=== PATIENT | female | born 1970 | race Caucasian/White ===

== ENCOUNTER 2016-09-18 14:22 | Emergency (ER) | payer OTHER ==
[~2016-09-18] VITALS: Ht 165.1 cm; Wt 118.2 kg
[~2016-09-18 14:22] MED LIST: ACET-171 PO; ASPI-973 PO; BENZ142C6 TP; BUSP10TA2 PO; CARV6.252 PO; CLIN30GE2 TP; DOCU50CA7 PO; DULO30CA PO; FEXO180T85 PO; FLUT16SP NS; HYDR-4003 PO; IBUP-1827 PO; KETACONAZOLE SHAMPOO TP; LISI-571 PO; OXYC1TAB24 PO; PRAZ1CAP2 PO; SPIR25TA3 PO; SULF1TAB34 PO; SUMA50TA2 PO; TIZA2CAP PO; TRAM50TA2 PO; VALA100026 PO
[2016-09-18 14:23] VITALS: BP 98/55; PULSE 93; RESP 15; O2SAT 98
[2016-09-18] MEDS ORDERED: 0.9% Sodium Chloride 1,000 ML IV ONE (14:40)
--- NOTE | 2016-09-18 14:40 | ED.REPORT ---
HPI-General Illness Date of Service Sep 18, 2016 ED Provider: The patient is a 46 year old female with history of coronary artery disease, congestive heart failure, hypertension, nonsustained V tach s/p AICD insertion, atrial fibrillation s/p cardiac ablation, valvular heart disease, and anxiety, who was brought to the emergency department by EMS for dizziness and lightheadedness that began 2 days ago. Her symptoms have worsened today. Her symptoms are exacerbated with standing. She has also noticed some dull chest pain and nausea. Her lisinopril dose was recently increased from 15 mg to 20 mg daily. Her states 2 weeks ago the patient had an episode of choking. She has not wanted to eat since this. Her urine has had a foul smell over the last few days. She denies abdominal pain, diarrhea, vomiting, dysuria, hematuria , cough or shortness of breath. Nursing Notes Stated Complaint: LIGHT HEADED Chief Complaint: General Complaint Nursing Notes Reviewed: Yes Allergies: Coded Allergies: Tetanus Vaccines and Toxoid (Verified Allergy, Severe, Shortness of Breath , 10/26/15) ibuprofen (Verified Allergy, Severe, Shortness of Breath, 10/26/15) TAPE (Verified Allergy, Unknown, Rash (plastic tape & tegaderm), 10/26/15) aripiprazole (Verified Allergy, Unknown, 10/26/15) bupropion (Unverified Allergy, Unknown, UNKNOWN, 08/13/15) latex (Verified Allergy, Unknown, UNKNOWN, 08/13/15) topiramate (Verified Allergy, Unknown, 08/13/15) citalopram hydrobromide (Verified Adverse Reaction, Severe, Agitation, ) Suicidal tendancies venlafaxine HCl (Verified Adverse Reaction, Severe, Agitation, 04/07/15) extreme mood swings Uncoded Allergies: ARACELI DELIGHT ORANGE DRINK (Allergy, Unknown, UNKNOWN, 04/07/15) Scheduled ([Ketaconazole Shampoo]) 1 APPLIC TP WEEKLY 2% Aspirin (Aspirin) 81 Mg Tablet 81 MG PO DAILY Buspirone (Buspirone) 10 Mg Tablet 15 MG PO BID Carvedilol (Carvedilol) 6.25 Mg Tablet 2 TAB PO BID Clindamycin Phosphate (Clindamycin Phosphate Gel) 30 Gm Gel..gram. 1 APPLIC TP DAILY Duloxetine (Cymbalta) 30 Mg Capsule.dr 30 MG PO BID TAKES 60MG IN AM; 30MG IN PM Fexofenadine (Maria Esther Allergy) 180 Mg Tablet 180 MG PO DAILY Fluticasone Propionate (Fluticasone Propionate Nasal) 16 Gm [place].susp 2 [place] NS DAILY Lisinopril (Lisinopril) 5 Mg Tablet 5 MG PO BID Prazosin (Prazosin) 1 Mg Capsule 3 MG PO HS Spironolactone (Spironolactone) 25 Mg Tablet 25 MG PO DAILY Sulfamethoxazole/Trimeth 400-80 mg (Bactrim 400-80 mg) 1 Each Tablet 1 TABLET PO BID Valacyclovir (Valacyclovir) 1,000 Mg Tablet 1,000 MG PO BID X 5 DAYS Scheduled PRN Acetaminophen (Acetaminophen) 500 Mg Tablet 500-1,000 MG PO PRN PRN PRN For Pain Benzoyl Peroxide (Benzoyl Peroxide) 142 Gm Cleanser 142 GM TP BID PRN PRN PRN Docusate Sodium (Docusate Sodium) 50 Mg Capsule 100 MG PO BID PRN PRN For Constipation Hydrocodone-Acetaminophen 5-325 mg (Hydrocodone-Acetaminophen 5-325 mg) 1 Each Tablet 1 TABLET PO Q4H PRN PRN For Pain Ibuprofen (Ibuprofen) 600 Mg Tablet 600 MG PO QID PRN PRN For Pain Sumatriptan Succinate (Sumatriptan Succinate) 50 Mg Tablet 50 MG PO PRN PRN PRN For Headache Take One at onset of headache, may repeat one time if after 2 hours if headache persists Tizanidine (Zanaflex) 2 Mg Capsule 2 MG PO TID PRN PRN For Pain Tramadol (Tramadol) 50 Mg Tablet 100 MG PO TID PRN PRN For Pain oxyCODONE-Acetaminophen 5-325 mg (oxyCODONE-Acetaminophen 5-325 mg) 1 Tab Tablet 1-2 TAB PO Q4H PRN PRN For Moderate Pain General Time Seen by MD: 14:39 Chief Complaint Dizziness Hx Obtained From: Patient, Spouse, EMS Arrived By: Ambulance Sudden in Onset?: Yes Onset Occurred: 1 - 4 hours ago Symptom Duration: Since onset Location: : Chest Quality: Pressure Radiation: : Does not radiate Severity: Current: No pain currently Severity: Maximum: Mild Recent Healthcare: No recent doctor visit, No recent hospitalization Similar Sx Previous: No Past Medical History Past Medical History Neuropathy Fibromyalgia Chronic back pain and deteriorating discs History of nonsustained V tach - AICD (06/2013) UTI Chest Pain (HX SD) Edema Heart Murmur (ECHO 04/2013 PULMONARY HTN) Irregular Heartbeat (HX OF VT,PT REPORTS PALPITATIONS) Atrial Fibrillation (AF, SVT) Pacemaker Valvular Heart Disease Osteoarthritis Anxiety Reports: Congestive heart failure, Coronary artery disease, Hypertension Reports: Gallbladder disease Past Surgical History Catheter in February of 2013 Cardiac ablation Reports: , Cholecystectomy, Hysterectomy Reports: Pacemaker insertion Family History Noncontributory Smoking History Former Smoker Social History Alcohol Use: Denies alcohol use Drug Use: Denies drug use Other Social History: Good social support, , Local resident Ambulatory Status Independent Review of Systems +foul smelling urine Full Review of Systems Constitutional: Denies: Chills, Fever Ears / Nose / Throat: Denies: Nasal congestion, Sore throat Respiratory: Denies: Non-productive cough, Shortness of breath Cardiovascular: Reports: Chest pain GI: Reports: Anorexia, Nausea, Denies: Abdominal pain, Constipation, Diarrhea, Hematemesis, Hematochezia, Vomiting Female: Denies: Dysuria, Hematuria, Urinary frequency, Urinary urgency, Urination decreased, Urination increased Neurologic: Reports: Dizziness, Lightheaded Complete sys rev & neg: except as marked. Physical Exam Vital Signs Vital Signs Date Time Temp Pulse Resp B/P Pulse Ox O2 Delivery O2 Flow Rate FiO2 09/18/16 17:21 36.5 74 16 128/68 98 Room Air 09/18/16 17:06 74 16 128/68 98 Room Air 09/18/16 15:47 83 22 110/72 95 Room Air 09/18/16 14:42 107 85/54 09/18/16 14:41 87 14 90/54 96 Room Air 09/18/16 14:41 97 101/51 09/18/16 14:23 36.5 93 15 98/55 98 Room Air Initial VS: Reviewed, Vital signs abnormal Head / Eyes: Atraumatic, Normocephalic, PERRL Neck: Supple, Non-tender, Full range of motion Cardiovascular: Regular rate & rhythm, Heart sounds normal, Intact distal pulses Abdomen / GI: Soft, Non-tender, No guarding, No rebound, No distention Lymphatic: No lymphadenopathy Extremities: Vascular intact, Neuro intact, No swelling, No tenderness Skin: Warm, Dry, No cyanosis Neurologic: Alert, Oriented, Nonfocal Psychiatric: Mood/affect normal, Behavior normal, Normal thought content General/Constitutional: Awake, Alert, Cooperative ENT: Airway patent Mouth: Positive: Mucous membranes dry Respiratory / Chest: Breath sounds NL, Breath sounds = bilat, No respiratory distress, No rales, No rhonchi, No wheezing Chest tenderness to palpation Abdomen: Soft, No guarding, No rebound, BS normoactive, No distention Tenderness/Guarding/Rebound: Positive: Tender epigastric Interpretation & Diagnostics Lab Results Interpretation Result Diagram: 09/18/16 1458 09/18/16 1458 Test 09/18/16 14:58 09/18/16 15:31 09/18/16 16:18 White Blood Count 20.0th/mm3 (3.8-10.1) Red Blood Count 5.66mil/mm3 (3.90-5.20) Hemoglobin 16.7g/dL (12.0-15.6) Hematocrit 50.3% (35.0-46.0) Mean Corpuscular Volume 88.9fL (81-100) Mean Corpuscular Hemoglobin 29.5pg (27.0-35.0) Mean Corpuscular Hemoglobin Concent 33.2% (32.0-37.0) Red Cell Distribution Width 14.5% (12.3-15.4) Platelet Count 254bil/L (150-400) Neutrophils (%) (Auto) 81.2% (40-74) Lymphocytes (%) (Auto) 10.6% (14-46) Monocytes (%) (Auto) 7.1% (4-12) Eosinophils (%) (Auto) 0.5% (0-5) Basophils (%) (Auto) 0.2% (0-3) Sodium Level 133mEq/L (134-144) Potassium Level 4.6mEq/L (3.5-5.2) Chloride Level 100mEq/L (97-108) Carbon Dioxide Level 16mmol/L (18-29) Blood Urea Nitrogen 13mg/dL (6-24) Creatinine 0.94mg/dL (0.57-1.00) Estimat Glomerular Filtration Rate 92mL/min (>59) Glucose Level 115mg/dL (60-99) Calcium Level 8.5mg/dL (8.5-10.1) Magnesium Level 2.1mg/dL (1.6-2.6) Total Bilirubin 0.4mg/dL (0.0-1.2) Aspartate Amino Transf (AST/SGOT) 13U/L (0-50) Alanine Aminotransferase (ALT/SGPT) 14U/L (0-32) Alkaline Phosphatase 97U/L (25-150) Troponin T < 0.010ug/L (0.0-0.011) Total Protein 6.6g/dL (6.4-8.4) Albumin 3.8g/dL (3.4-5.0) Urine Color Dark yellow (YELLOW) Urine Appearance Hazy (CLEAR,HAZY) Urine pH 6.0 (5.0-8.0) Urine Specific [place] 1.020 (1.003-1.035) Urine Protein 30mg/dL (NEG,TRACE) Urine Glucose (UA) Negativemg/dL (NEGATIVE) Urine Ketones Negativemg/dL (NEGATIVE) Urine Occult Blood Negative (NEGATIVE) Urine Nitrite Negative (NEGATIVE) Urine Bilirubin Negative (NEGATIVE) Urine Urobilinogen Normalmg/dL (NORMAL) Urine Leukocyte Esterase Negative (NEGATIVE) Urine RBC 0-2/hpf (0-2) Urine WBC 0-5/hpf (0-5) Urine Epithelial Cells None/hpf (NONE-MOD) Urine Crystals None seen (NONE SEEN) Urine Bacteria Few/hpf (NONE-FEW) Urine Hyaline Casts None/lpf (NONE) Urine Granular Casts None seen (NONE SEEN) Urine Waxy Casts None seen (NONE SEEN) Urine Red Blood Cell Casts None seen (NONE SEEN) Urine White Blood Cell Casts None seen (NONE SEEN) Urine Mucus None seen (None Seen) Urine Trichomonas None seen (NONE SEEN) Urine Yeast None (NONE SEEN) Urinalysis Comment None Urine Culture Reflexed Not indicated Lactic Acid Level 1.1mmol/L (0.4-2.0) Hold Lynn Top Tube Received (Received) ECG Interpretation ECG Interpretation: Sinus rhythm Normal intervals LAD No acute ST or T wave changes Similar to EKG taken in December 2015 Time: 14:40 Interpreted by: ED physician X-Ray Chest Interpretation Chest Xray Interpretation: IMPRESSION: No acute pulmonary process. Dictated by: Felecia Hylton M.D. on 09/18/2016 at 16:16 Interpretation / Wet Read by: Interpret - Radiologist Re-Eval/Medical Decision Med Decision/Clinical Course The patient is dizzy and orthostatic. Listening to her history is likely because she continues all her medications and has not been eating or drinking well out of fear recent choking episode. She also had a recent addition to her blood pressure medication. We will half liters of fluid her blood pressure normalized and her symptoms significantly improved. Differential diagnoses considered were dehydration, anemia, electrolyte abnormality, renal failure, and sepsis. The patient does not have any symptoms consistent with infection and her urinalysis and chest x-ray were negative. She has have a leukocytosis however she is also likely hemoconcentrated. Lactic acid was added and is negative, the patient did not have any further hypotension after fluids. Source of Hx: Old records, EMS, Family Time of Eval: 17:11 Patient Status: Condition improved Re-Evaluation/Progress Note: Rechecked the patient, she is feeling much better. Discussed plan for discharge. All questions were addressed. Counseled Regarding: Diagnosis, Lab results, Need for follow-up, When/why to return to ED Discharge & Departure Primary Impression: Orthostatic hypotension Additional Impression: Dehydration Disposition: Home Discharge Condition All VS Reviewed: Yes Condition: Stable Additional Instructions: Thank you for entrusting us with your care today. You need to start drinking fluids regularly. Have some extra fluid today, try Gatorade or Powerade. You need to start eating. You can start with a soft diet and then advance as tolerated. Please return to the emergency department for any new or concerning symptoms. Referrals: Petty Abarca DO (PCP) Lidya Attestation Portions of this note were transcribed by Britni Pena. I, Dr. rSinivasan personally performed the history, physical exam and medical decision-making; I reviewed and confirmed the accuracy of the information in the transcribed note. Signed by: Lidya Boyce, 09/18/2016 at 1720. copies to: Petty Abarca Jena M MD Sep 18, 2016 14:39 Britni Pena Sep 18, 2016 14:51
[2016-09-18 14:41] VITALS: BP_SYST 101; BP_SYST 90; BP_DIAS 51; BP_DIAS 54; PULSE 87; PULSE 97; RESP 14; O2SAT 96
[2016-09-18 14:42] VITALS: BP 85/54; PULSE 107
[2016-09-18 15:01] LABS: BASOPHILS % (AUTO) 0.2 % (0-3); EOSINOPHILS % (AUTO) 0.5 % (0-5); MONOCYTES % (AUTO) 7.1 % (4-12); Mean Corpuscular Hemoglobin 29.5 pg (27.0-35.0); Mean Corpuscular Volume 88.9 fL (81-100); NEUTROPHILS % (AUTO) 81.2 % (40-74); Platelet Count 254 bil/L (150-400)
[2016-09-18 15:25] LABS: TROPONIN T < 0.010 ug/L (0.0-0.011)
[2016-09-18 15:35] LABS: Magnesium 2.1 mg/dL (1.6-2.6)
[2016-09-18 15:47] VITALS: BP 110/72; PULSE 83; RESP 22; O2SAT 95
[2016-09-18] MEDS ORDERED: 0.9% Sodium Chloride 500 ML IV ONE (16:00)
[2016-09-18 16:10] LABS: APPEARANCE,URINE HAZY (CLEAR,HAZY); COLOR,URINE DARK YELLOW (YELLOW); OCCULT BLOOD,URINE NEGATIVE (NEGATIVE); UROBILINOGEN,URINE NORMAL (NORMAL)
--- NOTE | 2016-09-18 16:18 | DRSVH ---
PROCEDURE: X-RAY CHEST ONE VIEW, PORTABLE ([id number]) INDICATIONS: chest pain TECHNIQUE: One view of the chest was acquired. COMPARISON: [facility], CR, XR CHEST 1VW (PORTABLE), 12/31/2015, 12:23. FINDINGS: Surgical changes and devices: Pacemaker. Lungs and pleura: No pleural effusions or pneumothorax. Lungs are clear. Mediastinum: Mediastinal contours appear normal. Heart size is normal. Bones and chest wall: No suspicious bony lesions. Overlying soft tissues appear unremarkable. IMPRESSION: No acute pulmonary process. Dictated by: Felecia Hylton M.D. on 09/18/2016 at 16:16 Approved by: Felecia Hylton M.D. on 09/18/2016 at 16:16
[2016-09-18 17:06] VITALS: BP 128/68; PULSE 74; RESP 16; O2SAT 98
[2016-09-18 17:21] VITALS: BP 128/68; PULSE 74; RESP 16; O2SAT 98
[2016-11-05] MEDS ORDERED: BUSP30TA2 PO (09:38)
[2016-11-05] MEDS ORDERED: CARV6.252 PO ×2 (09:38)
[2016-11-05] MEDS ORDERED: VALA100026 PO (09:38)
[2016-11-05] MEDS ORDERED: PRAZ1CAP2 PO (09:38)
[2016-11-05] MEDS ORDERED: LISI10TA PO (09:38)
[2016-11-05] MEDS ORDERED: ASPI-973 PO (09:38)
[2016-11-05] MEDS ORDERED: SPIR25TA3 PO (09:38)
[2016-11-05] MEDS ORDERED: GABA-502 PO (09:38)
[2016-11-05] MEDS ORDERED: FRSM80T PO (09:38)
[2016-11-05] MEDS ORDERED: TRAM50TA2 PO (09:38)
[2016-11-05] MEDS ORDERED: FLUT16SP NS (09:38)
[2016-11-05] MEDS ORDERED: DOXY100C2 PO (09:38)
[2016-11-05] MEDS ORDERED: mapap (09:38)
[2016-11-05] MEDS ORDERED: DOCU-41 PO (09:38)
[2016-11-05] MEDS ORDERED: OMEP40CA36 PO (09:38)
[2016-11-05] MEDS ORDERED: FEXO180T85 PO (09:38)
== END 2016-09-18 17:22 | disposition home or self-care (01) ==
LOC: SED 14:22
DX: I95.1 Orthostatic hypotension (principal); E86.0 Dehydration; R07.9 Chest pain, unspecified; R11.0 Nausea; I11.0 Hypertensive heart disease with heart failure; I50.9 Heart failure, unspecified; I25.10 Atherosclerotic heart disease of native coronary artery without angina pectoris; I48.91 Unspecified atrial fibrillation; M79.7 Fibromyalgia; Z95.5 Presence of coronary angioplasty implant and graft; Z79.01 Long term (current) use of anticoagulants; Z87.891 Personal history of nicotine dependence; Z88.7 Allergy status to serum and vaccine; Z88.8 Allergy status to other drugs, medicaments and biological substances; Z91.040 Latex allergy status; Z91.048 Other nonmedicinal substance allergy status
CPT/HCPCS: 36415; 71010; 80053; 81000; 83605; 83735; 84484; 85025; 93005; 96360; 96361; 99285; J7030; J7040

== ENCOUNTER 2016-11-06 05:51 | Day surgery (SDC) | payer OTHER ==
--- NOTE | 2016-11-05 10:10 | PCM.ANEPRE ---
Anesthesia Pre-Op Review Reason for Review: ef 30-35% Anesthesia Recommendations: Proceed with Procedure Additional Comments Multiple comorbidities, low risk procedure. Consider Yamila block or regional anesthetic, possible Arterial Line prn. Will need AICD form completed. Anesthesiologist to evaluate on DOS. Chart Reviewed by: Armin Cummings MD Nov 05, 2016 10:10
[2016-11-06] VITALS (13 sets, daily range): BP systolic 114–158; BP diastolic 58–92; PULSE 90–103; RESP 13–22; O2SAT 91–98
[~2016-11-06] VITALS: Ht 165.1 cm; Wt 119.0 kg
[~2016-11-06 05:51] MED LIST changes: -ACET-171 PO; -BENZ142C6 TP; -BUSP10TA2 PO; +BUSP30TA2 PO; -CLIN30GE2 TP; +DOCU-41 PO; -DOCU50CA7 PO; +DOXY100C2 PO; -DULO30CA PO; +FRSM80T PO; +GABA-502 PO; -HYDR-4003 PO; -IBUP-1827 PO; -KETACONAZOLE SHAMPOO TP; -LISI-571 PO; +LISI10TA PO; +Lactated Ringer's 1,000 ML IV ONE; +OMEP40CA36 PO; -OXYC1TAB24 PO; -SULF1TAB34 PO; -SUMA50TA2 PO; -TIZA2CAP PO; +mapap
[2016-11-06] MEDS ORDERED: Ondansetron 2 mg/mL 2 mL Inj ONE (05:52)
[2016-11-06] MEDS ORDERED: Dexamethasone 4 mg/mL Inj ONE (05:52)
[2016-11-06] MEDS ORDERED: Propofol 10,000 mCg/mL 20 mL Inj ONE (05:52)
[2016-11-06] MEDS ORDERED: Lidocaine PF 1% 30 mL Inj ONE (05:52)
[2016-11-06] MEDS ORDERED: fentaNYL-PF 50 mCg/mL 2 mL Inj ONE (05:52)
[2016-11-06] MEDS ORDERED: HYDROcodone-APAP 7.5-325 mg Tablet PO PRN (07:30)
--- NOTE | 2016-11-06 07:42 | PCM.HPANE ---
Patient Data Date of Service: Nov 06, 2016 Surgeon Admitting Provider: Attending Provider:Sonido Luther DO Primary Care Physician:Petty Abarca DO Other Provider:Bree Alcantar Anesthesia Reason for Visit Left Cubital Tunnel Syndrome Ht/WT & BMI Height (Feet): 5 Height (Inches): 5.00 Weight (Kilograms): 119.0 Body Mass Index 43.00 Allergies Coded Allergies: Tetanus Vaccines and Toxoid (Verified Allergy, Severe, Shortness of Breath , 10/26/15) ibuprofen (Verified Allergy, Severe, Shortness of Breath, 10/26/15) TAPE (Verified Allergy, Unknown, Rash (plastic tape & tegaderm), 10/26/15) aripiprazole (Verified Allergy, Unknown, 10/26/15) bupropion (Unverified Allergy, Unknown, UNKNOWN, 08/13/15) latex (Verified Allergy, Unknown, UNKNOWN, 08/13/15) topiramate (Verified Allergy, Unknown, 08/13/15) citalopram hydrobromide (Verified Adverse Reaction, Severe, Agitation, ) Suicidal tendancies venlafaxine HCl (Verified Adverse Reaction, Severe, Agitation, 04/07/15) extreme mood swings Uncoded Allergies: ARACELI DELIGHT ORANGE DRINK (Allergy, Unknown, UNKNOWN, 04/07/15) Past Anesthesia History Anesthesia History: Denies:: Anesthesia Reactions, Fam Anesthesia Reaction ( sister went on life support after surgery), Malignant Hyperthermia Diabetes History Hx Diabetes?: No MRSA MRSA: No Medications Blood Thinner: Aspirin Hypertension Medication: Yes Home Meds Incl Beta Deng: Yes (Carvedilol 18.75mg) Date Beta Deng Taken: Nov 06, 2016 Time Beta Deng Taken: 444 Reported Medications Valacyclovir 1,000 Mg Tablet2 Tab PO BID PRN sx after initial dose 1 tab bidx5 days 11/05/16 Tramadol 50 Mg Uypibl64 Mg PO Q8H PRN For Pain Ref 0 11/05/16 Spironolactone 25 Mg Wzkson18 Mg PO DAILY #30 TABLET Ref 0 11/05/16 Prazosin 1 Mg Capsule5 Mg PO DAILY 11/05/16 Omeprazole 40 Mg Capsule.dr40 Mg PO DAILY Ref 0 11/05/16 [mapap] 500mg tab No Conflict Check1,000 Mg Q6H PRN For Pain 11/05/16 Lisinopril 10 Mg Xjgjon50 Mg PO DAILY 30 Days Ref 0 11/05/16 Gabapentin 300 Mg Wvcbyki468 Mg PO TID Ref 0 11/05/16 Furosemide 80 Mg Tab80 Mg PO DAILY 30 Days Ref 0 11/05/16 Fluticasone Propionate (Fluticasone Propionate Nasal)16 Gm [place].susp1 [place] NS BID #16 GM Ref 0 11/05/16 Doxycycline Hyclate 100 Mg Bnifnzt029 Mg PO 1-2xdaily 11/05/16 Docusate Sodium (Colace)100 Mg Ltltimv915 Mg PO BID PRN For Constipation Ref 0 11/05/16 Carvedilol 6.25 Mg Tablet2 Tab PO QPM Ref 0 11/05/16 Carvedilol 6.25 Mg Tablet3 Tab PO QAM Ref 0 11/05/16 Buspirone 30 Mg Dabrlz94 Mg PO BID Ref 0 11/05/16 Aspirin 81 Mg Bppker81 Mg PO DAILY Ref 0 11/05/16 Fexofenadine (Maria Esther Allergy)180 Mg Cigcma511 Mg PO DAILY Ref 0 11/05/16 Discontinued Reported Medications Sulfamethoxazole/Trimeth 400-80 mg (Bactrim 400-80 mg)1 Each Tablet1 Tablet PO BID Ref 0 04/15/15 Valacyclovir 1,000 Mg Tablet1,000 Mg PO BID X 5 DAYS 04/07/15 Benzoyl Peroxide 142 Gm Uthuozlk752 Gm TP BID PRN PRN 04/07/15 Prazosin 1 Mg Capsule3 Mg PO HS 04/07/15 [Ketaconazole Shampoo] No Conflict Check1 Applic TP WEEKLY 2% 04/07/15 Docusate Sodium 50 Mg Jgwyhmt544 Mg PO BID PRN For Constipation 04/07/15 Duloxetine (Cymbalta)30 Mg Capsule.dr30 Mg PO BID Ref 0 TAKES 60MG IN AM; 30MG IN PM 04/07/15 Clindamycin Phosphate (Clindamycin Phosphate Gel)30 Gm Gel..gram.1 Applic TP DAILY #30 GM Ref 0 04/07/15 Aspirin 81 Mg Jjtkri43 Mg PO DAILY Ref 0 04/07/15 Fexofenadine (Maria Esther Allergy)180 Mg Bpjrtg279 Mg PO DAILY Ref 0 04/07/15 Lisinopril 5 Mg Tablet5 Mg PO BID #60 TABLET Ref 0 09/24/14 Buspirone 10 Mg Uyxlqu86 Mg PO BID 30 Days Ref 0 08/21/14 Acetaminophen 500 Mg Bjszee425-9,000 Mg PO PRN PRN For Pain 02/16/14 Carvedilol 6.25 Mg Tablet2 Tab PO BID Ref 0 02/16/14 Sumatriptan Succinate 50 Mg Pjfcdk13 Mg PO PRN PRN For Headache Take One at onset of headache, may repeat one time if after 2 hours if headache persists 02/16/14 Tramadol 50 Mg Tvpgmj901 Mg PO TID PRN For Pain Ref 0 02/16/14 Spironolactone 25 Mg Lkesnz01 Mg PO DAILY #30 TABLET Ref 0 11/19/13 Fluticasone Propionate (Fluticasone Propionate Nasal)16 Gm [place].susp2 [place] NS DAILY #16 GM Ref 0 11/19/13 Discontinued Scripts Tizanidine (Zanaflex)2 Mg Capsule2 Mg PO TID PRN For Pain #9 CAPSULE Prov:Andrew Tenorio DO 07/10/16 Ibuprofen 600 Mg Cghjub635 Mg PO QID PRN For Pain #20 TABLET Prov:Jules Wilkes MD 10/26/15 Hydrocodone-Acetaminophen 5-325 mg 1 Each Tablet1 Tablet PO Q4H PRN For Pain # 10 TABLET Prov:Jules Wilkes MD 10/26/15 oxyCODONE-Acetaminophen 5-325 mg 1 Tab Tablet1-2 Tab PO Q4H PRN For Moderate Pain #50 TABLET Prov:Audi Kiran DO 04/16/15 History History of ENT Problems?: Yes HEENT History: Positive for:: Dysphagia (some difficulty with swallowing solids) Sinus Problem (seasonal allergies) Denies:: Cataracts Glaucoma Hearing Problem Hx of Heart Problems?: Yes Cardiovascular History: Positive for:: AICD (06/2013) Atrial Fibrillation (svt) Cardiac Surgery (AICD) Chest Pain (hx of , with palpitations) Congestive Heart Failure Edema Heart Murmur Hypertension Irregular Heartbeat Pacemaker Valvular Heart Disease (echo 2015- ef 30-35%) Denies:: Thrombophlebitis Hx of Respiratory Problem?: Yes Respiratory History: Positive for:: Dyspnea Denies:: Asthma COPD Chest Surgery Emphysema Hemoptysis Oxygen Administration Pneumonia Tuberculosis Use of C-PAP Machine (study non conclusive- scheduled to repeat December) Hx Neurologic Problems?: Yes Neurological History: Positive for:: Headaches Denies:: Alzheimer's Disease CVA Dementia Dizziness Multiple Sclerosis Parkinson's Disease Seizures Hx of GI Problems?: Yes Gastrointestinal History: Positive for:: Gall Bladder Disease (removed) Gastroesphageal Reflux Heartburn Denies:: Diverticulitis Gastrointestinal Bleeding Hepatitis Hiatal Hernia Rectal Bleeding Hx of Problems?: No Genitourinary History: Denies:: HX of Hemodialysis Kidney Stones Urinary Tract Infection HX of Peritoneal Dialysis: No Female Hx: Denies:: Currently Endometriosis Pelvic Inflammatory Problems with Breasts? Skin History: Denies:: History Skin Disorders? Pressure Ulcers Hx Musculoskeletal Problems?: Yes Musculoskeletal History: Positive for:: Back Injury (chronic back) Fibromyalgia Musculoskeletal Trauma (left cubital tunnel syndrome current admission problem ) Osteoarthritis (right knee and back) Denies:: Joint Replacement Myasthenia Gravis Systemic Lupus Hx of Psycho/Social Problems?: Yes Psycho Social History: Positive for:: Anxiety Hx Depression Denies:: Bipolar Disorder Suicide Attempt Hx Surgeries?: Yes (d&c x2, c-sect x2, r foot surg, hyst, AICD 2013, MIKEY, ablation ) Hx Any Other Health Problems?: Yes Other History: Positive for:: Hospitalization Denies:: Cancer Endocrine Disease Thyroid Disease History Blood Transfusions: Positive for:: Blood Transfusions Denies:: Blood Transfuse Reaction Hx Diabetes: No Hx Alcohol Use: NoHx Substance Use: No Smoking Status: Former Smoker Have You Smoked inLast 12 mo: No Stop/Bang S-Snoring: Do You Snore Loudly: Yes T-Tired: feel tired, fatigued: No O-Obsered: Observed not breath: No P-Blood Pressure: treated: Yes B- Body Mass Index > 35 kg/m2: Yes A- Age over 50: No N- Neck Large Circumference: Yes G- Gender Male: No KT Total Score: 4 KT Risk Assessment: High Risk, =/>3 Yes Risk Assessment Category Category 1A: Patient has history of documented sleep apnea, and HAS NOT received any narcotic, sedative or anesthesia administration during this stay. Category 1B: Patient has history of documented sleep apnea, and HAS received any narcotic , sedative or anesthesia administration during this stay Category 2: Patient has SUSPECTED Obstructive Sleep Apnea, and HAS received any narcotic , sedative or anesthesia administration during this stay. Category 3: Patient has SUSPECTED Obstructive Sleep Apnea and HAS NOT received narcotic, sedative or anesthesia administration during this stay. Category 4: Outpatient in Procedural Areas with known sleep apnea or who screen positive for High Risk via the STOP/BANG questionnaire. Exam Exam Vital Signs Vital Signs Date Time Temp Pulse Resp B/P Pulse Ox O2 Delivery O2 Flow Rate FiO2 11/06/16 06:51 36.6 90 16 135/58 98 Room Air General Appearance: Alert, Oriented X3, Cooperative, No Acute Distress HEENT/AIRWAY: MP 2 Lungs: Normal Air Movement Heart: Exam Unremarkable Meds/Labs/Diagnostics Admission Meds Current Medications Lactated Ringer's (Lr) 1,000 ml @ ud STK-MED ONCE IV Last administered on 11/06t 05:17; Start 11/06/16 at 05:17; Stop 11/06/16 at 05:18; Status DC Plan Impression Patient chart reviewed, patient interviewed and anesthestic plan with risks, benefits, and alternatives discussed, and informed consent obtained. NPO Status: 11/05 AT 1500 ASA Physical Status: ASA3 Severe Disease (CAD, morbid obesity) Anesthetic Plan: GA Bene/Risks/Altern/Consents: Yes HP Complete Prior to Induction: Yes Endy Cabrera MD Nov 06, 2016 07:42
[2016-11-06] MEDS ORDERED: Lactated Ringer's 1,000 ML IV SCH (07:56)
[2016-11-06] MEDS ORDERED: Lactated Ringer's 500 ML IV PRN (07:56)
[2016-11-06] MEDS ORDERED: EPHEDrine Sulfate 50 mg/mL Inj IVPUSH PRN (08:00)
[2016-11-06] MEDS ORDERED: Atropine 0.4 mg/mL Inj IVPUSH PRN (08:00)
[2016-11-06] MEDS ORDERED: Ondansetron 2 mg/mL 2 mL Inj IVPUSH PRN (08:00)
[2016-11-06] MEDS ORDERED: MetoCLOpramide 5 mg/mL 2 mL Inj IVPUSH PRN (08:00)
[2016-11-06] MEDS ORDERED: hydrALAZINE 20 mg/mL Inj IVPUSH PRN (08:00)
[2016-11-06] MEDS ORDERED: fentaNYL-PF 50 mCg/mL 2 mL Inj IVPUSH PRN (08:00)
[2016-11-06] MEDS ORDERED: Phenylephrine 10,000 mCg/mL Inj IVPUSH PRN (08:00)
[2016-11-06] MEDS ORDERED: Dexamethasone 4 mg/mL Inj IVPUSH PRN (08:00)
[2016-11-06] MEDS ORDERED: Labetalol 5 mg/mL 4 mL Inj IV PRN (08:00)
[2016-11-06] MEDS ORDERED: Lidocaine 1%-Epi 1:100,000 20 mL Inj INFILTRATE ONE (09:02)
--- NOTE | 2016-11-06 09:23 | PCM.ANEP1 ---
Post Anesthesia Phase 1 PACU Phase 1 Assessment Date of Service: Nov 06, 2016 Vital Signs Vital Signs Date Time Temp Pulse Resp B/P Pulse Ox O2 Delivery O2 Flow Rate FiO2 11/06/16 09:20 102 21 127/87 95 Simple Mask 8 11/06/16 09:18 103 18 128/90 95 Simple Mask 8 11/06/16 09:10 103 22 158/88 94 Simple Mask 8 11/06/16 09:08 37.2 101 20 147/91 91 Nasal Cannula 4 11/06/16 06:51 36.6 90 16 135/58 98 Room Air Anesthetic Administered: GA Level of Alertness: Sleepy, easy to arouse Pain: No Nausea or Vomiting: No Oxygen Delivery: Nasal Cannula Lungs: Normal Air Movement nEdy Cabrera MD Nov 06, 2016 09:23
[2016-11-06] MEDS: HYDROmorphone 1 mg/mL Inj IVPUSH PRN ×2 (09:42→09:49)
--- NOTE | 2016-11-06 10:17 | PCM.ANEP2 ---
Post Anesthesia Evaluation ASA/CMS Post Anesthesia Date of Service: Nov 06, 2016 VS in Patient's Normal Range?: Yes Resp Stable; Airway Patent?: Yes CV Function & Hydration Stable: Yes Mental Status Recovered?: Yes Pain control Satisfactory?: Yes N/V Control Satisfactory?: Yes Endy Cabrera MD Nov 06, 2016 10:17
--- NOTE | 2016-11-06 19:30 | OP ---
[address] [address] OPERATIVE REPORT PATIENT: CLARY MARTINEZ : 1970 MR#: [id number] ADMIT: 11/06/2016 JOB ID: [id number] DATE OF SURGERY: 11/06/2016 PREOPERATIVE DIAGNOSIS(ES): Left cubital tunnel syndrome. POSTOPERATIVE DIAGNOSIS(ES): Left cubital tunnel syndrome. PROCEDURE: Left cubital tunnel decompression. SURGEON: Sonido Luther DO. ANESTHESIA: General. HISTORY: The patient is a pleasant, 46-year-old female with a longstanding history of left ring and small finger numbness and tingling. She failed conservative treatment with behavioral modification and presented with electrodiagnostic findings for moderate cubital tunnel syndrome with slowing across the elbow within the cubital tunnel. I discussed with the patient, the risks, benefits, and indications to proceed with a cubital tunnel decompression versus ulnar nerve transposition pending disability of the ulnar nerve intraoperatively. She understood the risks include, but are not limited to, neurovascular injury, tendon injury, infection, failure to resolve the patient's preoperative symptoms, stiffness, persistent pain which may require further intervention. Patient had all questions answered. Consent signed and placed on the chart. PROCEDURE IN DETAIL: The patient was brought to the operative suite and placed supine on the operating table. Surgical time-out performed. Everyone in the room was in agreement. After appropriate anesthesia was obtained, a left upper arm tourniquet was applied and the left upper extremity was prepped and draped in a sterile fashion. Left upper extremity was then exsanguinated and tourniquet inflated to 250 mmHg. A curvilinear incision was made overlying the course of the ulnar nerve within the cubital tunnel. Dissection was carried down to the cubital tunnel taking care to protect any branches of the medial antebrachial cutaneous nerve. The ulnar nerve was identified within the cubital tunnel and decompressed as far proximal to the level of the medial intermuscular septum and as far distal to include the deep fascia of the flexor carpi ulnaris. There was an hourglass deformity appreciated with decompression just behind the medial epicondyle. After complete decompression was identified, the elbow was brought through a full functional range of motion. No subluxation of the ulnar nerve was appreciated. Copious irrigation was performed, followed by closure of the subcutaneous tissues with 4-0 Vicryl and a 3-0 nylon for the skin. The patient was then placed in a bulky soft dressing. ESTIMATED BLOOD LOSS: Less than 1 cc. COMPLICATIONS: None. DISPOSITION: The patient tolerated the procedure well. Anesthesia was reversed. The patient was transferred back to the recovery room. POSTOPERATIVE PLAN: The patient will follow up in the office in two weeks. I will remove the patient's sutures at that time and have her start working on range of motion and scar mobilization.
== END 2016-11-06 23:59 | disposition home or self-care (01) ==
LOC: SAS 05:51
PROVIDERS: ATTEND Orthopaedic Surgery
DX: G56.22 Lesion of ulnar nerve, left upper limb (principal); I10 Essential (primary) hypertension; I50.9 Heart failure, unspecified; I42.9 Cardiomyopathy, unspecified; I47.2 Ventricular tachycardia; F41.9 Anxiety disorder, unspecified; M79.7 Fibromyalgia; K21.9 Gastro-esophageal reflux disease without esophagitis; F32.9 Major depressive disorder, single episode, unspecified; E66.9 Obesity, unspecified; M19.90 Unspecified osteoarthritis, unspecified site; Z95.810 Presence of automatic (implantable) cardiac defibrillator; Z90.710 Acquired absence of both cervix and uterus; Z87.891 Personal history of nicotine dependence; Z68.41 Body mass index [BMI] 40.0-44.9, adult; Z79.82 Long term (current) use of aspirin
CPT/HCPCS: 64718; J1100; J1170; J2250; J2405; J2765; J3010; J7120